=== PATIENT | female | born 1960 | race Caucasian/White ===

== ENCOUNTER 2020-09-09 08:32 | Inpatient (IN) ==
--- NOTE | 2020-07-12 09:51 | PAT Medication Instructions ---
Medication Instructions Date of Service July 12, 2020 Home Medications Oscal 500 mg PO DAILY celecoxib [Celebrex] 200 mg PO DAILY cranberry extract 252 mg PO DAILY levothyroxine 50 mcg PO QAM lisinopril 2.5 mg PO QAM multivitamin [One A Day] 1 tab PO DAILY omeprazole [Prilosec] 20 mg PO QPM simvastatin 20 mg PO QPM ASK your surgeon for instructions celecoxib [Celebrex] 200 mg PO DAILY STOP taking 2 weeks before surgery If surgery is within 2 weeks, stop taking as soon as possible. cranberry extract 252 mg PO DAILY DO NOT take the morning of surgery Oscal 500 mg PO DAILY lisinopril 2.5 mg PO QAM multivitamin [One A Day] 1 tab PO DAILY Take morning of surgery With a small sip of water, OTHERWISE NOTHING TO EAT OR DRINK AFTER MIDNIGHT: levothyroxine 50 mcg PO QAM Take evening before surgery omeprazole [Prilosec] 20 mg PO QPM simvastatin 20 mg PO QPM Other Notes If you have any questions please call us at [phone] or [phone] or [phone] or [phone]
--- NOTE | 2020-07-13 11:32 | Anesthesiology Consultation ---
Date of Service July 13, 2020 Assessment & Plan (1) Encounter for pre-operative examination: - Per assessment on 07/13: Travel screen -- [facility] for doctor appt. Uses PPE. No known COVID-19 positive contacts or current COVID-19 related symptoms. Surgeon arranging preop COVID testing (scheduled 08/05; [facility]). Awaiting results. - Hoahaoism: pt requests no blood products. No preop T&S done per carol ent request. OR made aware. Chart Review Chart Review: Acceptable Risk for Surgery (pending surgeon-ordered PCP clearance) and Patient seen in Pre Admission Testing Teaching & Discussion Pre-Anesthesia Teaching/Discussion Notes: Instructed NPO after midnight before surgery,except medications with 15 cc of water. Medication instructions provided according to the PAT guidelines. History Surgery Operation Date: 08/12/20 07:45 Proposed Procedures p Left Total Shoulder Arthroplasty Reverse - Alan Alfred M.D. Height/Weight Height: 5 ft Weight: 64.5 kg Allergies Allergy/AdvReac Type Severity Reaction Status Date / Time No Known Allergies Allergy Verified 07/07/20 15:03 Medications Home Medications Medication Instructions Recorded Confirmed Last Taken Oscal 500 mg PO DAILY 07/07/20 07/07/20 Unknown celecoxib [Celebrex] 200 mg PO DAILY 07/07/20 07/07/20 Unknown cranberry extract 252 mg PO DAILY 07/07/20 07/07/20 Unknown levothyroxine 50 mcg PO QAM 07/07/20 07/07/20 Unknown lisinopril 2.5 mg PO QAM 07/07/20 07/07/20 Unknown multivitamin [One A Day] 1 tab PO DAILY 07/07/20 07/07/20 Unknown omeprazole [Prilosec] 20 mg PO QPM 07/07/20 07/07/20 Unknown simvastatin 20 mg PO QPM 07/07/20 07/07/20 Unknown Past Medical History Medical History Acid reflux Anxiety Back problem HTN (hypertension) Hyperlipidemia Hypothyroid No blood products Hoahaoism, no blood products BATOOL (obstructive sleep apnea) suspected with prior surgeries per pt, no formal testing Exercise / Class Metabolic Activity III < 4 Walking/Shop/Light housework (one flight of stairs (no chest pain, very mild SOB)) Past Family History Family History Mother Family history of stroke Other Family history of colon cancer in mother Past Surgical History Surgical History History of back surgery Synovial cystectomy L4-L5 History of back surgery Left SI fusion History of carpal tunnel surgery of left wrist History of colonoscopy History of fusion of cervical spine C4-C6 fusion, subsequent C6-C7 fusion History of hysterectomy History of rotator cuff surgery Right History of shoulder surgery Right History of shoulder surgery Left (01/2020) Past Anesthesia History No Family Hx of Anesthesia Complications (except mother (PONV)) and Other (suspected BATOOL with previous surgeries per patient, no formal testing) History of PONV No Hx of Motion Sickness and History of PONV (x1 episode (with hysterectomy), improvement when pretreatment used) Social History Smoking Status: Former smoker Do You Dip or Chew Tobacco: No Smoking End Date: Quit 40 years ago (social smoking hx) Hx Alcohol Use: Yes Alcohol type: wine alcohol intake frequency: a few times a week (2 drinks/week) substance use type: does not use Review of Systems Patient denies chest pain, shortness of breath, fever, chills, cough, wheezing, palpitations. Physical Exam Vital Signs VITALS BP 118/81 P 74 TEMP 98.3 SP02 96%RA RESP 16 PHYSICAL Full neck and c-spine range of motion. Full TMJ range of motion. TMD 3 finger breaths Mallampati Score 3 Dentition: intact Lungs: clear throughout to auscultation Cardiac: regular rate and rhythm, no murmurs noted Spine: normal Carotid arteries: negative bruit Extremities: no edema Testing Laboratory Results 07/13/20 11:59 07/13/20 11:59 PT 10.4 Seconds (9.0-12.0) 07/13/20 11:59 INR 1.0 (0.9-1.1) 07/13/20 11:59 APTT 25.9 Seconds (21.0-31.0) 07/13/20 11:59 Hemoglobin A1c 5.9 % (4.5-5.6) H 07/13/20 11:59 Urine Color Yellow 07/13/20 11:59 Urine Appearance Clear (Clear) 07/13/20 11:59 Urine pH 5.0 (4.5-7.5) 07/13/20 11:59 Ur Specific Burton 1.013 (1.000-1.030) 07/13/20 11:59 Urine Protein Negative (Negative) 07/13/20 11:59 Urine Glucose (UA) Negative (Negative) 07/13/20 11:59 Urine Ketones Negative (Negative) 07/13/20 11:59 Urine Nitrite Negative (Negative) 07/13/20 11:59 Ur Leukocyte Esterase Negative (Negative) 07/13/20 11:59 Electrocardiogram Date: 07/13/20 SR with short AR at 65bpm. Otherwise normal ECG. unconfirmed report. Chest X-Ray Date: 07/13/20 FINDINGS: The cardiac and mediastinal contours are normal. There is no evidence of focal pulmonary consolidation. There is no evidence of failure. No pleural effusions are visualized.[Postsurgical changes are present within the cervical spine. IMPRESSION: No active disease in the chest.
[2020-07-13 12:26] LABS: Appearance Urine Clear (Clear); Basophils # (auto) 0.03 K/uL (0-0.2); Basophils % (auto) 0.4 %; Bilirubin Urine Negative (Negative); Blood Urine Negative (Negative); Color Urine Yellow; Eosinophils % (auto) 1.3 %; Glucose Urine UA Negative (Negative); Hematocrit (blood only) 42.9 % (37-47); Immature Granulocytes # (auto) 0.01 K/uL (0.00-0.02); Immature Granulocytes % (auto) 0.1 %; Ketones Urine Negative (Negative); Leukocyte Esterase Urine Negative (Negative); Lymphocytes # (auto) 2.59 K/uL (1.2-3.4); Lymphocytes % (auto) 32.5 %; Mean Corpuscular Hemoglobin 29.7 pg (25-34); Mean Corpuscular Hgb Conc 32.6 g/dL (32-36); Mean Corpuscular Volume 91.1 fL (80-100); Monocytes # (auto) 0.45 K/uL (0.11-0.59); Monocytes % (auto) 5.6 %; Neutrophils # (auto) 4.79 K/uL (1.4-6.5); Neutrophils % (auto) 60.1 %; Nitrite Urine Negative (Negative); Platelet Count 292 K/uL (130-400); Protein Urine Negative (Negative); RDW Standard Deviation 43.4 fL (36.4-46.3); Red Blood Count 4.71 M/uL (4.2-5.4); Specific Gravity Urine 1.013 (1.000-1.030); Urobilinogen Urine Negative (Negative); White Blood Count 7.97 K/uL (4.8-10.8)
--- NOTE | 2020-07-13 12:31 | XRay Report ---
XR chest Pre-admission PA/Lat CLINICAL HISTORY: Preoperative chest COMPARISON STUDY: No previous studies for comparison. FINDINGS: The cardiac and mediastinal contours are normal. There is no evidence of focal pulmonary co nsolidation. There is no evidence of failure. No pleural effusions are visualized.[Postsurgical maravilla es are present within the cervical spine. IMPRESSION: No active disease in the chest. ACT 112: Negative or not required by law. Electronically signed by: Mj Simmons M.D. 07/13/2020 12:29 PM
[2020-07-13 12:36] LABS: Partial Thromboplastin Ratio 0.9; Partial Thromboplastin Time 25.9 Seconds (21.0-31.0); Prothrombin Time 10.4 Seconds (9.0-12.0)
[2020-07-13 12:47] LABS: Estimated Average Glucose 123 mg/dl; Hemoglobin A1C 5.9 % (4.5-5.6)
[2020-07-13 13:14] LABS: BUN Creatinine Ratio 17.6 (10-20); Calcium 8.7 mg/dl (8.5-10.1); Creatinine Clr Calc Pharmacy 70.4 ml/min; Est GFR (African American) 105.2; Est GFR (Non-African American) 90.8; Potassium 3.9 mmol/L (3.5-5.1)
--- NOTE | 2020-07-13 16:37 | Electrocardiogram Report ---
Test Reason : Blood Pressure : / mmHG Vent. Rate : 065 BPM Atrial Rate : 065 BPM P-R Int : 104 ms QRS Dur : 082 ms QT Int : 426 ms P-R-T Axes : 061 062 069 degrees QTc Int : 443 ms Sinus rhythm with short NH Otherwise normal ECG No previous ECGs available Confirmed by Hector Vázquez ([id number]) on 07/13/2020 4:37:02 PM Referred By: Alan Alfred Confirmed By:Hector Vázquez
--- NOTE | 2020-09-08 15:14 | History & Physical Report ---
Date of Service September 08, 2020 Assessment & Plan (1) Rotator cuff arthropathy of left shoulder: She has a recurrent, massive, full-thickness, retracted rotator cuff tear involving the entirety of the supraspinatus and infraspinatus tendons, as well as the upper portion of the subscapularis after a previous attempted rotator cuff repair. She currently has about 70% fatty atrophy of the supraspinatus muscle belly that has progressed since her previous MRI in December. I therefore think that this is now an irrepairable rotator cuff tear. We extensively discussed her treatment options. Conservative treatment would involve a steroid injection to help control her pain, but I advised her would not likely improve her function. She is not particularly interested in this, as she is severely debilitated by her lack of ability to raise her arm. We therefore discussed surgical treatment options. I would not recommend a repeat attempt at a rotator cuff repair, as I do not think that it is a repairable tear at this point. We also extensively discussed a superior capsular reconstruction. She currently does not work; she is disabled from previous neck surgery. I advised her that an SCR is a temporizing procedure to give her a few more years of use of her shoulder before proceeding with a shoulder replacement, but I do not think it will significantly improve her function. We finally discussed a reverse total shoulder arthroplasty. I do think that this would be her most reliable surgical treatment option especially in light of the fact that she already has some glenohumeral joint arthritis. After an extensive discussion of all her treatment options, she elected to proceed with a reverse total shoulder, and I think this is reasonable. We will get this set up with a preoperative CT scan for preoperative planning. Risks, benefits, and alternatives of surgery were explained in detail. The surgical procedure, as well as postoperative recovery and rehabilitation, was also explained in detail. Risks include bleeding; infection; damage to surrounding structures such as nerves, blood vessels, and tendons that run in the area; persistent pain or stiffness; hardware failure; dislocation; brachial plexus palsy; blood clots; or need for further surgery. The patient understands all of this and wishes to proceed with surgery. Preoperative workup was completed today, and informed consent was obtained. Present on Admission?: Yes History of Present Illness Chief Complaint: Left shoulder pain and weakness Primary Care Provider: NO PCP Ms. Chang is a 59-year old [id number] female who comes in today for initial evaluation of left shoulder pain and weakness. She originally injured her left shoulder back in June 2019 when she had a ground-level fall and an axial load injury to her left shoulder. She did note that she had some occasional aching pain in that shoulder prior to this injury, but no limitation in function. She did see an orthopedic surgeon at the time. She received 2 steroid injections into her shoulder between July and October, but her pain con tinued to worsen. She eventually had an MRI done in December which showed a very large rotator cuff tear. She then underwent a rotator cuff repair in January; it looks like only a single anchor was used for the rotator cuff repair. After surgery, she reports that she never regained the ability to lift her arm to the side. It has been persistently painful. She has both pain and limited function right now that is extremely bothersome to her. The pain is waking her up at night. Allergies Allergy/AdvReac Type Severity Reaction Status Date / Time No Known Allergies Allergy Verified 09/08/20 08:11 Home Medications Medication Instructions Recorded Confirmed Type celecoxib [Celebrex] 200 mg PO DAILY 07/07/20 09/08/20 History cranberry extract 252 mg PO DAILY 07/07/20 09/08/20 History levothyroxine 50 mcg PO QAM 07/07/20 09/08/20 History lisinopril 2.5 mg PO QAM 07/07/20 09/08/20 History multivitamin [One A Day] 1 tab PO DAILY 07/07/20 09/08/20 History omeprazole [Prilosec] 20 mg PO QPM 07/07/20 09/08/20 History simvastatin 20 mg PO QPM 07/07/20 09/08/20 History calcium carbonate [Os-Melo] 500 mg PO QPM 09/08/20 09/08/20 History cholecalciferol (vitamin D3) 50 mcg PO QAM 09/08/20 09/08/20 History [Vitamin D3] Past Med/Surg History Medical History (Updated 09/08/20 @ 15:13 by Alan Alfred M.D.) Acid reflux Anxiety Back problem HTN (hypertension) Hyperlipidemia Hypothyroid No blood products Sikhism, no blood products BATOOL (obstructive sleep apnea) suspected with prior surgeries per pt, no formal testing Surgical History (Updated 09/08/20 @ 08:15 by Gabby Carrillo RN) Family history of reaction to anesthesia MOTHER-N/V History of back surgery Synovial cystectomy L4-L5 History of back surgery Left SI fusion History of carpal tunnel surgery of left wrist History of colonoscopy History of fusion of cervical spine C4-C6 fusion, subsequent C6-C7 fusion History of hysterectomy History of rotator cuff surgery Right History of shoulder surgery Right History of shoulder surgery Left (01/2020) Nausea and vomiting after administration of anesthetic agent Family History Mother Family history of stroke Other Family history of colon cancer in mother Social History Smoking Status: Former smoker Smoking End Date: Quit 40 years ago (social smoking hx); Do You Dip or Chew Tobacco: No; Hx Alcohol Use: Yes Alcohol type: wine Hx Substance Use: No Preferred Language: Danish Communication Ability: Effective Photogeologist Required: No Beliefs That Will Affect Care: Temple Temple Beliefs: JEHOVAW WITNESS Current Living Situation: Spouse Other Information That Helps Us Care for You: No Feels Safe at Home: Yes Safety Concerns: Feels Safe At This Time Assistive Devices: Glasses Physical Exam Physical Exam: General: The patient appears well developed and well nourished. Awake, alert, and oriented x 3. Appropriate mood and affect. Normal gait and station. Normal coordination and balance. Skin: The skin over the left shoulder shows no lesion or erythema. Inspection/Palpation: Visual inspection reveals no gross deformity of the shoulder. There is no palpable focal swelling. There is no significant focal tenderness to palpation. Range of Motion: There is good passive range of motion of the shoulder. Active abduction is severely limited due to pain and weakness. She can only actively abduct up to about 45 degrees. Positive impingement testing. Stability: There is no gross ligamentous laxity. Strength: Supraspinatous and infraspinatous strength is severely limited. Subscapularis strength is well maintained. Positive [place]'s test. Sensation: The patient reports no numbness in the hand. Vascular: Hand is warm and well perfused. No diffuse edema. Results & Data ([facility]) Diagnostic Findings X-rays of the left shoulder show some mild glenohumeral and acromioclavicular joint arthritis, but nothing terribly significant. Mild proximal migration of the humeral head. Previous MRIs of the left shoulder from December and May were reviewed. Her preoperative MRI showed a very large full-thickness retracted rotator cuff tear. She did have some fatty atrophy of her rotator cuff muscle belly at the time, maybe about 50%. Repeat postoperative MRI from May shows a recurrent, massive, retracted rotator cuff tear involving the entirety of the supraspinatus and infraspinatus tendons, and the upper border of the subscapularis. She has about 70% fatty atrophy of the supraspinatus muscle belly. The rotator cuff tendon is retracted to the level of the glenoid rim. There is proximal migration of the humeral head. There is moderate arthritic degeneration within the glenohumeral joint. A single rotator cuff repair anchor is noted within the humeral head. There is degenerative tearing of the superior labrum.
[~2020-09-09 08:32] MED LIST: ACETAMINOPHEN 500 MG TAB PO SCH; BUPIVACAINE 0.5 % 5 MG/1 ML PF 10ML VIAL ONE; CeleBREX 200 MG CAP PO SCH; FAMOTIDINE 20 MG TAB PO SCH; GABAPENTIN 600 MG DOSE PO SCH; LR 15ML/HR IV SCH; METOCLOPRAMIDE HCL 10 MG TABLET PO SCH; TRANEXAMIC ACID 1,000 MG **IV Pre-op IV SCH; ceFAZolin 1000MG 1,000 MG/7.5 ML SYR IV SCH; dexAMETHasone 4 MG TAB PO SCH
[2020-09-09] MEDS ORDERED: DEXAMETHASONE SOD INJ 4 MG/ML VIAL ONE (08:52)
[2020-09-09] MEDS ORDERED: LIDOCAINE HCL 2% 2 ML VIAL/AMP(20MG/ML) INFIL ONE (08:52)
[2020-09-09] MEDS ORDERED: fentaNYL citrate 100 MCG/2 ML VIAL ONE (08:52)
[2020-09-09] MEDS ORDERED: ONDANSETRON INJ 2 MG/ML 2 ML VIAL ONE (08:52)
[2020-09-09] MEDS ORDERED: PROPOFOL IV EMULSION 10 MG/ML 20 ML VIAL IV ONE (08:52)
[2020-09-09] MEDS ORDERED: MIDAZOLAM HCL 1 MG/ML 2ML VIAL ONE (08:52)
[2020-09-09] MEDS ORDERED: ePHEDrine sulfate 50 MG/ML AMP IV PRN (09:55)
[2020-09-09] MEDS ORDERED: ATROPINE SULFATE 0.1 MG/ML 10ML SYR IV PRN (09:55)
[2020-09-09] MEDS ORDERED: fentaNYL citrate 100 MCG/2 ML VIAL IV PRN (09:55)
[2020-09-09] MEDS ORDERED: ONDANSETRON INJ 2 MG/ML 2 ML VIAL IV PRN ×2 (09:55→14:13)
[2020-09-09] MEDS ORDERED: HYDROmorphone INJ 1 MG/ML SYRINGE IV PRN (09:55)
--- NOTE | 2020-09-09 10:12 | History & Physical Bridge Note ---
Date of Service September 09, 2020 History & Physical Bridge Note I have examined the patient, reviewed the History & Physical and in the interval since the performance of the History & Physical I have noted the following changes of clinical significance: no changes noted
[2020-09-09] MEDS ORDERED: PHENYLEPHRINE 100MCG/ML 5ML SYR ONE (11:14)
[2020-09-09] MEDS ORDERED: ePHEDrine sulfate 50 MG/ML SYR ONE (11:14)
--- NOTE | 2020-09-09 12:37 | Post Operative Brief Note ---
Immediate Post Op Note v1 Date of Surgery September 09, 2020 Pre & Post Diagnosis Operation Date: 09/09/20 10:25 Pre-Op Diagnosis: Left shoulder rotator cuff tear arthropathy Post-Op Diagnosis: Left shoulder rotator cuff tear arthropathy I identified the patient and participated in the time-out.: Yes Procedure Operation Date: 09/09/20 10:25 Actual Procedures Left Reverse Total Shoulder Arthroplasty - Alan Alfred M.D. Surgeon Alan Alfred Residential Construction Instructor Vladislav Boudreaux PA-C Estimated Blood Loss 75 Findings Consistent with Post-Op Diagnosis
--- NOTE | 2020-09-09 13:08 | Operative Report ---
Post Operative Report Pre & Post Diagnosis Operation Date: 09/09/20 10:25 Pre-Op Diagnosis: Left shoulder rotator cuff tear arthropathy Post-Op Diagnosis: Left shoulder rotator cuff tear arthropathy I identified the patient and participated in the time-out.: Yes Procedure Operation Date: 09/09/20 10:25 Actual Procedures Left Reverse Total Shoulder Arthroplasty ([id number]) - Alan Alfred M.D. Surgeon Alan Alfred Equity Research Analyst Vladislav Boudreaux PA-C Estimated Blood Loss 50 Findings Consistent with Post-Op Diagnosis Specimens None Drains None Anesthesia Type General Regional Complications none Disposition Disposition: Recovery Room Indications Ms. Chang is a 59-year-old female with persistent pain and weakness in her left shoulder after previous attempt at a rotator cuff repair. History, clinical exam, and imaging were consistent with the above diagnosis. Risks, benefits, and alternatives of surgery were explained in detail. The patient understood all this and wished to proceed. Description of Procedure Components Implanted: Tornier Reverse Total Shoulder implants Perform glenoid baseplate: 25mm, 15 degree full wedge with 6.5mm central screw and 5.0mm peripheral screws Glenosphere: 36mm, centered Ascend Flex humeral stem: 1B Standard length (66mm) Humeral tray: 3.5mm offset, +0mm thickness Polyethylene insert: 36mm, +6mm thickness Patient was identified in the preoperative holding area. Operative extremity was marked. Regional blockade was given by the Anesthesia Staff. Patient was then brought back to the operating room, and general anesthesia was induced without complication. Appropriate weight-based dose of Ancef was infused intravenously for antibiotic prophylaxis. The patient was then placed in the beachchair position. Left arm was then prepped and draped in a standard sterile fashion using Chlorhexidine prep. A standard deltopectoral incision was made through the skin and subcutaneous t issue. The cephalic vein was identified and retracted medially. Small branches to the deltoid were coagulated as necessary. The clavipectoral fascia was then incised and the subdeltoid space was opened. The rotator cuff was found to be deficient, and I therefore decided to perform a reverse total shoulder arthroplasty as planned preoperatively. The biceps tendon was found to be ruptured, with the proximal stump scarred to the subscapularis remnant. The rotator interval was opened, and the proximal portion of the biceps tendon stump was excised. The remaining subscapularis tendon was elevated subperiosteally off of the lesser tuberosity. The glenohumeral joint was then dislocated, and large osteophytes were debrided with a ronguer. The humeral head cut was then made in the appropriate inclination and version using the cutting guide. The intramedullary canal of the humerus was then opened with a canal finder. The humeral canal was then sequentially broached to the appropriate size. A protective cap was then placed on top of the humeral trial. I then turned my attention to the glenoid. The proximal stump of the biceps tendon was excised, along with the labrum circumferentially around the glenoid. The Blueprint drill guide was then positioned on the glenoid, and the guidepin was then inserted. The 15 degree angled reamer was then inserted over the guidepin and an reamed to an appropriate depth. The central screw hole was drilled, and appropriate length 6.5mm central screw was selected. The baseplate was then implanted into place according to our preoperative Blueprint plan by tightening down the central screw. A peripheral 5mm nonlocking screw was placed superiorly first for additional compression of the baseplate, and then additional locking 5 mm peripheral screws were placed to complete fixation of the baseplate. Glenosphere was then impacted and secured. A trial humeral tray and insert were placed on the trial humeral stem, and a trial reduction was carried out. Once I achieved acceptable joint stability and range of motion with the trial implants, the final humeral implants were assembled on the back table and then impacted into position. I then took the shoulder through full range of motion to ensure good stability and acceptable motion. Wound was then copiously irrigated with sterile saline. Deep fascia was closed with 0 V-lock suture. Subcutaneous tissue was closed with 2-0 V-lock, and skin was closed with 3-0 V-lock. Skin was then sealed with Dermabond. Sterile dressings were then applied with a waterproof silver-impregnated dressing, and the arm was placed into a sling. The patient was awakened from anesthesia and taken to the Post Anesthesia Care Unit in stable condition. There were no immediate complications from the procedure. I was present and scrubbed for the entire procedure, with the exception of final skin closure and dressing application. Due to the complex nature of the procedure, the entire surgery was performed with the operational assistance of Vladislav Boudreaux PA-C. The store assistant, under direct supervision, was involved in the performance of all aspects of the surgical procedure including patient positioning, tissue retraction, hemostasis, wound closure, and dressing application. I attest to the content of the Intraoperative Record and any orders documented therein. Any exceptions are noted below.
--- NOTE | 2020-09-09 13:39 | XRay Report ---
XR shoulder LT min 2V routine HISTORY: 59 years-old Female Post shoulder surgery left shoulder total joint arthroplasty COMPARISON: Chest radiographs 07/13/2020 TECHNIQUE: 2 views of the left shoulder FINDINGS: Reverse total joint arthroplasty of the left shoulder demonstrates satisfactory alignment. Expected p ostsurgical soft tissue swelling and deep tissue air. No malalignment, acute fracture or unexpected o paque foreign body. Moderate degeneration of the left AC joint. Small left pleural effusion with left basilar opacities. Cervical spinal fusion hardware. IMPRESSION: Reverse left shoulder total joint arthroplasty with expected postoperative changes. ACT 112: Negative or not required by law. The above report was generated using voice recognition software. It may contain grammatical, syntax o r spelling errors. Electronically signed by: Braden Nye M.D. 09/09/2020 1:38 PM
[2020-09-09] MEDS ORDERED: METOCLOPRAMIDE HCL INJ 5 MG/ML 2 ML VIAL IV PRN (14:13)
[2020-09-09] MEDS ORDERED: NALOXONE HCL 0.4 MG/1 ML VIAL/CARP IV PRN (14:13)
[2020-09-09] MEDS ORDERED: bisacodyL 10 MG SUPP PR PRN (14:13)
[2020-09-09] MEDS ORDERED: MAGNESIUM HYDROXIDE SUSP 30 ML UDC PO PRN (14:13)
[2020-09-09] MEDS: ACETAMINOPHEN 500 MG TAB PO SCH ×2 (14:36→20:19)
[2020-09-09] MEDS: SODIUM CHLORIDE 0.9% 1000ML 1,000 ML IV SCH (14:42)
--- NOTE | 2020-09-09 14:58 | Anesthesiology Progress Note ---
Date of Service September 09, 2020 Anesthesia Post Procedure Vital Signs Vital Signs: Temp Pulse Pulse Resp BP Pulse Ox 09/09/20 14:35 90 18 109/69 95 09/09/20 13:55 36.3 C L 84 18 108/67 97 09/09/20 13:50 81 18 109/66 99 09/09/20 13:40 84 16 106/65 98 09/09/20 13:30 36.4 C L 88 18 106/70 98 09/09/20 13:20 89 18 114/72 96 09/09/20 13:10 81 16 116/68 99 09/09/20 13:00 81 13 98/65 L 97 09/09/20 12:53 36.0 C L 86 15 115/73 97 09/09/20 09:24 36.7 C 70 20 159/76 H 99 Pain Intensity Left Shoulder: Pain Intensity: 0 Transfer of Care Handoff Completed per policy Notes Mental Status: alert / awake / arousable and participated in evaluation Patient Amnestic to Procedure: Yes Nausea / Vomiting: adequately controlled Pain: adequately controlled Airway Patency, RR, SpO2: stable & adequate BP & HR: stable & adequate Hydration State: stable & adequate Anesthetic Complications: no major complications apparent and Pt Satisfied with anesthetic care
--- NOTE | 2020-09-09 16:56 | Orthopedic Progress Note ---
Date of Service September 09, 2020 Assessment & Plan (1) Rotator cuff arthropathy of left shoulder: Postoperative day 0 status post left reverse total shoulder arthroplasty. No biceps tenodesis or subscapularis repair performed, and she may therefore move her shoulder as tolerated without specific restrictions at this point. Plan for discharge home tomorrow. Present on Admission?: Yes Admission and Anticipated Discharge Date Admission Date: September 09, 2020 Subjective Patient doing very well postoperatively. She denies any pain in her left shoulder, although her arm still feels numb and is weak, consistent with the nerve block still working. Physical Exam Physical Exam: Left shoulder dressings clean, dry, intact. Results & Data ([facility]) Vital Signs (Past 12 Hours) Vital Signs Temp Pulse Pulse Resp BP Pulse Ox 09/09/20 16:46 36.6 C 97 H 16 116/68 95 09/09/20 15:53 36.5 C 90 16 100/63 97 09/09/20 14:57 36.6 C 92 H 16 109/63 97 09/09/20 14:35 90 18 109/69 95 09/09/20 13:55 36.3 C L 84 18 108/67 97 09/09/20 13:50 81 18 109/66 99 09/09/20 13:40 84 16 106/65 98 09/09/20 13:30 36.4 C L 88 18 106/70 98 09/09/20 13:20 89 18 114/72 96 09/09/20 13:10 81 16 116/68 99 09/09/20 13:00 81 13 98/65 L 97 09/09/20 12:53 36.0 C L 86 15 115/73 97 09/09/20 09:24 36.7 C 70 20 159/76 H 99
[2020-09-09] MEDS: IBUPROFEN 600 MG TAB PO SCH ×2 (18:23→23:28)
[2020-09-09] MEDS: ceFAZolin 1000MG 1,000 MG/7.5 ML SYR IV SCH (18:23)
[2020-09-09] MEDS: DOCUSATE SODIUM 100 MG CAP PO SCH (20:19)
[2020-09-09] MEDS ORDERED: CALCIUM CARBONATE 1250MG TAB PO SCH (21:00)
[2020-09-09] MEDS ORDERED: SIMVASTATIN 20 MG TAB PO SCH (21:00)
[2020-09-09] MEDS ORDERED: PANTOprazole 40 MG TAB PO SCH (21:00)
[2020-09-09] MEDS ORDERED: SENNA 8.6 MG TAB PO SCH (21:00)
[2020-09-09] MEDS: oxyCODONE HCL IR 5 MG TAB (IMMEDIATE RELEASE) PO PRN (21:35)
[2020-09-10] MEDS: ACETAMINOPHEN 500 MG TAB PO SCH ×2 (02:09→09:14)
[2020-09-10] MEDS: SODIUM CHLORIDE 0.9% 1000ML 1,000 ML IV SCH (02:09)
[2020-09-10] MEDS: ceFAZolin 1000MG 1,000 MG/7.5 ML SYR IV SCH (02:10)
[2020-09-10] MEDS: oxyCODONE HCL IR 5 MG TAB (IMMEDIATE RELEASE) PO PRN ×3 (03:12→11:31)
[2020-09-10] MEDS: IBUPROFEN 600 MG TAB PO SCH (05:53)
[2020-09-10 06:29] LABS: Mean Corpuscular Hgb Conc 33.2 g/dL (32-36); Nucleated RBC # (auto) 0.16 K/uL (0-0); Platelet Count 271 K/uL (130-400)
[2020-09-10] MEDS ORDERED: LEVOTHYROXINE SODIUM 50 MCG TABLET PO SCH (06:30)
[2020-09-10 06:52] LABS: Hematocrit (blood only) 35.8 % (37-47); Hemoglobin 11.9 g/dL (12.0-16.0); Mean Corpuscular Hemoglobin 30.2 pg (25-34); Mean Corpuscular Volume 90.9 fL (80-100); RDW Coefficient of Variation 13.2 % (11.5-14.5); RDW Standard Deviation 43.8 fL (36.4-46.3); Red Blood Count 3.94 M/uL (4.2-5.4); White Blood Count 16.57 K/uL (4.8-10.8)
[2020-09-10 06:53] LABS: Basophils # (auto) 0.01 K/uL (0-0.2); Basophils % (auto) 0.1 %; Immature Granulocytes # (auto) 0.05 K/uL (0.00-0.02); Immature Granulocytes % (auto) 0.3 %; Lymphocytes # (auto) 0.86 K/uL (1.2-3.4); Lymphocytes % (auto) 5.2 %; Monocytes # (auto) 1.52 K/uL (0.11-0.59); Monocytes % (auto) 9.2 %; Neutrophils # (auto) 14.13 K/uL (1.4-6.5); Neutrophils % (auto) 85.2 %
[2020-09-10 07:04] LABS: BUN Creatinine Ratio 18.7 (10-20); Calcium 9.1 mg/dl (8.5-10.1); Creatinine Clr Calc Pharmacy 66.8 ml/min; Est GFR (African American) 94.2; Est GFR (Non-African American) 81.3; Potassium 4.6 mmol/L (3.5-5.1)
--- NOTE | 2020-09-10 08:23 | Orthopedic Progress Note ---
Date of Service September 10, 2020 Assessment & Plan (1) Rotator cuff arthropathy of left shoulder: Postoperative day 1 status post left reverse total shoulder arthroplasty. No biceps tenodesis or subscapularis repair performed, and she may therefore move her shoulder as tolerated without specific restrictions at this point. PT/OT protocols. DVT prophylaxis with aspirin p.o. daily, SCDs Pain management as written. Leukocytosis-patient is asymptomatic at this time. Likely due to possible preoperative steroids and or surgical stress. DC planning-patient is planning on outpatient PT when discharged. Admission and Anticipated Discharge Date Admission Date: September 09, 2020 Subjective Postop day 1 Patient sitting up in bed alert and oriented. She states she has some mild soreness in the left shoulder but otherwise is feeling fine. Denies shortness of breath, chest pain, lightheadedness. Physical Exam Physical Exam: Dressings are clean, dry, and intact. Sling is in place. She has good range of motion of her fingers of her left hand and sensation is intact . Cap refills less than 2 seconds. Results & Data ([facility]) Vital Signs (Past 12 Hours) Vital Signs Temp Pulse Resp BP Pulse Ox 09/10/20 03:10 36.7 C 74 18 106/63 96 09/09/20 22:16 36.8 C 94 H 18 119/71 96 Laboratory Results Laboratory Results WBC 16.57 K/uL (4.8-10.8) H 09/10/20 05:45 RBC 3.94 M/uL (4.2-5.4) L 09/10/20 05:45 Hgb 11.9 g/dL (12.0-16.0) L 09/10/20 05:45 Hct 35.8 % (37-47) L 09/10/20 05:45 MCV 90.9 fL (80-100) 09/10/20 05:45 MCH 30.2 pg (25-34) 09/10/20 05:45 MCHC 33.2 g/dL (32-36) 09/10/20 05:45 RDW Std Deviation 43.8 fL (36.4-46.3) 09/10/20 05:45 RDW Coeff of Nickolas 13.2 % (11.5-14.5) 09/10/20 05:45 Plt Count 271 K/uL (130-400) 09/10/20 05:45 MPV 10.0 fL (7.4-10.4) 09/10/20 05:45 Immature Gran % (Auto) 0.3 % 09/10/20 05:45 Neut % (Auto) 85.2 % 09/10/20 05:45 Lymph % (Auto) 5.2 % 09/10/20 05:45 Coffee % (Auto) 9.2 % 09/10/20 05:45 Eos % (Auto) 0.0 % 09/10/20 05:45 Baso % (Auto) 0.1 % 09/10/20 05:45 Neut # (Auto) 14.13 K/uL (1.4-6.5) H 09/10/20 05:45 Lymph # (Auto) 0.86 K/uL (1.2-3.4) L 09/10/20 05:45 Coffee # (Auto) 1.52 K/uL (0.11-0.59) H 09/10/20 05:45 Eos # (Auto) 0.00 K/uL (0-0.5) 09/10/20 05:45 Baso # (Auto) 0.01 K/uL (0-0.2) 09/10/20 05:45 Immature Gran # (Auto) 0.05 K/uL (0.00-0.02) H 09/10/20 05:45 Absolute Nucleated RBC 0.16 K/uL (0-0) H 09/10/20 05:45 Nucleated RBC % (auto) 1.0 % 09/10/20 05:45 PT 10.4 Seconds (9.0-12.0) 07/13/20 11:59 INR 1.0 (0.9-1.1) 07/13/20 11:59 APTT 25.9 Seconds (21.0-31.0) 07/13/20 11:59 PTT Ratio 0.9 07/13/20 11:59 Sodium 141 mmol/L (136-145) 09/10/20 05:45 Potassium 4.6 mmol/L (3.5-5.1) 09/10/20 05:45 Chloride 110 mmol/L (98-107) H 09/10/20 05:45 Carbon Dioxide 24 mmol/L (21-32) 09/10/20 05:45 Anion Gap 7.0 (3-11) 09/10/20 05:45 BUN 15 mg/dl (7-18) 09/10/20 05:45 Creatinine 0.80 mg/dl (0.6-1.2) 09/10/20 05:45 Est Cr Clr Drug Dosing 66.8 ml/min 09/10/20 05:45 Est GFR ( Amer) 94.2 09/10/20 05:45 Est GFR (Non-Af Amer) 81.3 09/10/20 05:45 BUN/Creatinine Ratio 18.7 (10-20) 09/10/20 05:45 Glucose 129 mg/dl (70-99) H 09/10/20 05:45 Estimat Average Glucose 123 mg/dl 07/13/20 11:59 Hemoglobin A1c 5.9 % (4.5-5.6) H 07/13/20 11:59 Calcium 9.1 mg/dl (8.5-10.1) 09/10/20 05:45 Albumin 4.0 gm/dl (3.4-5.0) 07/13/20 11:59 Urine Color Yellow 07/13/20 11:59 Urine Appearance Clear (Clear) 07/13/20 11:59 Urine pH 5.0 (4.5-7.5) 07/13/20 11:59 Ur Specific [place] 1.013 (1.000-1.030) 07/13/20 11:59 Urine Protein Negative (Negative) 07/13/20 11:59 Urine Glucose (UA) Negative (Negative) 07/13/20 11:59 Urine Ketones Negative (Negative) 07/13/20 11:59 Urine Blood Negative (Negative) 07/13/20 11:59 Urine Nitrite Negative (Negative) 07/13/20 11:59 Urine Bilirubin Negative (Negative) 07/13/20 11:59 Urine Urobilinogen Negative (Negative) 07/13/20 11:59 Ur Leukocyte Esterase Negative (Negative) 07/13/20 11:59
[2020-09-10] MEDS ORDERED: lisinopril 2.5 MG TAB PO SCH (09:00)
[2020-09-10] MEDS ORDERED: CHOLECALCIFEROL 1,000 UNITS 25 MCG TAB PO SCH (09:00)
[2020-09-10] MEDS ORDERED: MULTIVITAMIN TAB PO SCH ×2 (09:00)
[2020-09-10] MEDS ORDERED: ASPIRIN 325 MG ECTAB PO SCH (09:00)
[2020-09-10] MEDS ORDERED: CRANBERRY EXTRACT 250 MG PO SCH (09:00)
[2020-09-10] MEDS: DOCUSATE SODIUM 100 MG CAP PO SCH (09:14)
--- NOTE | 2020-09-10 17:07 | Discharge Summary ---
Date of Service September 10, 2020 Admission HPI Per Admitting Provider Ms. Chang is a 59-year old [id number] female who comes in today for initial evaluation of left shoulder pain and weakness. She originally injured her left shoulder back in June 2019 when she had a ground-level fall and an axial load injury to her left shoulder. She did note that she had some occasional aching pain in that shoulder prior to this injury, but no limitation in function. She did see an orthopedic surgeon at the time. She received 2 steroid injections into her shoulder between July and October, but her pain continued to worsen. She eventually had an MRI done in December which showed a very large rotator cuff tear. She then underwent a rotator cuff repair in January; it looks like only a single anchor was used for the rotator cuff repair. After surgery, she reports that she never regained the ability to lift her arm to the side. It has been persistently painful. She has both pain and limited function right now that is extremely bothersome to her. The pain is waking her up at night. Principal Diagnosis Left shoulder rotator cuff tear arthropathy Discharge Data Allergies Allergy/AdvReac Type Severity Reaction Status Date / Time No Known Allergies Allergy Verified 09/09/20 09:21 Procedures Performed Operation Date: 09/09/20 10:25 Actual Procedures p Left Reverse Total Shoulder Arthroplasty(Left) - Alan Alfred M.D. Ordered Studies 09/09/20 05:00 US - OR guided needle placemen Routine Hospital Course (1) Rotator cuff arthropathy of left shoulder: Patient underwent a left reverse total shoulder arthroplasty on the date of admission. Patient tolerated the procedure well and was transferred up to the general orthopedic surgery floor in stable condition. Perioperative antibiotic coverage was initiated, and continued for 24 hours postoperatively. DVT prophylaxis was initiated consisting of SCDs and aspirin 325 mg daily. Perioperative pain control regimen was transitioned to strictly oral pain medications by postoperative day 1. On postoperative day 1 the patient was doing very well. Pain was well controlled, and patient was mobilizing well with therapy. Patient was determined be safe and ready for discharge to home. Total Time Total Time Spent Total Time Spent (In Minutes): 15 Total Time Includes: Discharge Planning and Medication Reconciliation Discharge Plan Discharge Items Patient Disposition: Home - Self-Care Reason For Visit: Left Shoulder Rotator Cuff Tear Arthroplasty Discharge Diagnosis: Left shoulder rotator cuff tear arthropathy Activity: Per Instructions section Non-emergency contact: Surgeon Call non-emergency contact if: your pain is not controlled, your temperature is above 101.5, your wound has increased redness and your wound has increased drainage Follow-up/Referrals: Alan Alfred M.D. [Physician] - PCP,NO [Primary Care Provider] - Diet: Regular Addtl Attending Provider Instructions: Things to Watch Out For -Go to the Emergency Room if you have sudden onset of nausea, vomiting, chest pain, shortness of breath, or uncontrollable pain. -Call the clinic or go to the Emergency Room if you have a sudden increase in the amount of wound drainage or the drainage becomes thick, yellow or green, or foul-smelling. -For routine questions, call the clinic at [phone] during regular business hours (8am-5pm). For urgent issues after regular business hours, you may call the clinic to be connected to the on-call physician. Dressings -A special waterproof, silver-impregnated dressing was placed on your shoulder. Keep this dressing in place for 1 week after surgery. You may shower with the waterproof dressing in place, but do not soak the dressing in the bathtub or pool. -One week after surgery, you may remove the waterproof dressing. You may continue to shower, and let water run BRIEFLY over the incision, but do not soak the incision in the bathtub or pool for 2 weeks. You may also gently clean the incision with mild soap and water; pat the incision dry after cleaning-do not rub the incision. Apply a new dressing daily thereafter. Shoulder Exercises -Keep your operative shoulder in the sling for comfort, except as detailed below. -You should come out of the sling 4-5 times a day for passive pendulum exercises: lean over and swing your arm in a circular pattern. -You should also do active-assisted forward flexion exercises: use your opposite hand to lift your operative arm forward to 90 degrees. -Do not use your arm to push yourself up out of bed or up from a seated position. Ice Pack -You may use an ice pack for pain relief. You should use it 20-30 minutes at a time. Place a towel between the ice pack and your skin to prevent frostbite. -You should use the ice pack fairly regularly for the first 1-2 weeks after surgery to help reduce pain and inflammation. -About 2 weeks after your surgery, you should start using heat to loosen up your shoulder prior to doing your stretching exercises, then use the cooling sleeve after your exercises are complete to reduce swelling and pain. Pain Medicines -Your prescriptions for pain medications have already been sent to the pharmacy on file at [facility]. -You have been prescribed an anti-inflammatory (Motrin/ibuprofen) and a non- narcotic pain medicine (Tylenol/acetaminophen). These are your primary pain med ications. Take them each every 6 hours as instructed. It is recommended that you stagger these medicines every 3 hours (i.e. take ibuprofen at 8:00 am, then acetaminophen at 11:00 am, then ibuprofen at 2:00 pm, etc) -DO NOT take any additional anti-inflammatories (Advil, Aleve/naproxen, Mobic/meloxicam, Celebrex) or any additional Tylenol/acetaminophen products with these prescribed medications. -You have also been prescribed an additional narcotic pain medication (oxycodone). Take this medicine ONLY for breakthrough pain not controlled by the ibuprofen and acetaminophen. -Do not drive or operate heavy machinery while taking the narcotic medication. -Common side effects of narcotic pain medicines include itching, nausea, constipation, and feeling "loopy". However, if you develop a rash or hives, stop taking the medicine and call the clinic. If you develop swelling in your throat or difficulty breathing, go to the Emergency Room or call 911 IMMEDIATELY. -You may take over the counter stool softeners if needed for constipation. Aspirin -Take a full strength (325mg) aspirin every day for 4 weeks (28 days) to prevent blood clots. -If you were taking a baby aspirin (81mg) prior to surgery, you may resume taking this 81mg dose after you complete the 28-day course of the 325mg strength dose; do not take the 325mg dose in addition to your 81mg dose. -Be aware that you will bruise easier while taking Aspirin; this is normal. However, if you develop a significantly large area of swelling after an injury, or have a cut that will not stop bleeding, call the clinic or go to the Emergen cy Room immediately. Pending Studies at Discharge: No Stand-Alone Forms: My [facility], Smoking Cessation Medications and DC Order Prescriptions: Continued multivitamin Tablet 1 tab PO DAILY RF: 0 celecoxib [Celebrex] 200 mg Capsule 200 mg PO DAILY RF: 0 levothyroxine 50 mcg Tablet 50 mcg PO QAM RF: 0 simvastatin 20 mg Tablet 20 mg PO QPM RF: 0 omeprazole 20 mg Capsule,Delayed Release(Dr/Ec) 20 mg PO QPM RF: 0 lisinopril 5 mg Tablet 2.5 mg PO QAM RF: 0 cranberry extract 250 mg Tablet 252 mg PO DAILY RF: 0 cholecalciferol (vitamin D3) [Vitamin D3] 50 mcg (2,000 unit) Tablet 50 mcg PO QAM RF: 0 calcium carbonate 500 mg calcium (1,250 mg) Tablet 500 mg PO QPM RF: 0 Discharge Orders: Discharge Order (Routine); Ordered 09/10/20 Ordered By: Vin Rene/Other Patient Handouts: DVT Post Op Prevention Admission Data Admit Date/Time: 09/09/20 13:03 Attending Provider: Alan Alfred Admit Provider: Alan Alfred Primary Care Provider: PCP,NO Other Interventions: Discharge Summary Assessment (RN) Last Done: 09/10/20 09:59
== END 2020-09-10 11:51 | disposition home or self-care (01) | DRG 483 ==
LOC: ASU 08:32 → 3E 13:03